=== PATIENT | male | born 1985 | race African-American/Black ===

== ENCOUNTER 2017-04-09 18:56 | Emergency (ER) | payer BC ==
--- NOTE | 2017-04-09 19:16 | EDM.PDOC ---
ED HPI GENERAL MEDICAL PROBLEM - General Chief Complaint: ENT Problem Stated Complaint: PT HAS SORE THROAT Time Seen by Provider: 04/09/17 19:06 - History of Present Illness INITIAL COMMENTS - FREE TEXT/NARRATIVE: HISTORY AND PHYSICAL: History of present illness: The patient is a 32-year-old male with no stated medical history who comes into the ER with a one-week history of intermittently feeling like when he eats food is getting stuck at the sternal notch in his throat. Patient states it is not consistent and he is able to eat or drink and it comes and goes but he is having no issues with increased burping nausea vomiting stomach pain chest pain shortness of breath trouble speaking. The patient says he feels the discomfort and then it seems to go away on its own. The patient has never had this before one week ago and he has no other systemic complaints. Currently he doesn't feel like anything is stuck. He says that he always feels a sensation in that same location at the base of his neck never lower and his chest or his abdomen. Review of systems: As per history of present illness and below otherwise all systems reviewed and negative. Past medical history: As per history of present illness and as reviewed below otherwise noncontributory. Surgical history: As per history of present illness and as reviewed below otherwise noncontributory. Social history: No reported history of drug or alcohol abuse. Family history: As per history of present illness and as reviewed below otherwise noncontributory. Physical exam: Gen.: Well-developed well-nourished male speaking clearly and easily in the ED without hoarse or muffled voice and vital signs been noted by me. HEENT: Atraumatic, normocephalic, pupils reactive, negative for conjunctival pallor or scleral icterus, mucous membranes moist, throat clear, neck supple, nontender, trachea midline. There is no evidence of any oropharyngeal swelling or abnormalities there is no tracheal deviation and no cervical adenopathy or nuchal rigidity and no soft tissue neck swelling. Lungs: Clear to auscultation, breath sounds equal bilaterally, chest nontender. Heart: S1S2, regular rate and rhythm no overt murmurs Abdomen: Soft, nondistended, nontender. NABS. Skin: No overt rashes or lesions normal turgor Genitourinary: Deferred. Rectal: Deferred. Extremities: Atraumatic, negative for cords or calf pain. Neurovascular unremarkable. Neuro: Awake, alert, oriented. Cranial nerves II through XII unremarkable. Cerebellum unremarkable. Motor and sensory unremarkable throughout. Exam nonfocal. Diagnostics: Soft tissue neck x-ray Therapeutics: I discussed with the patient that we will be very limited in evaluating an intermittent problem but is currently not occurring. I told him we could go ahead and do x-rays to evaluate the anatomy and I can refer him to ENT for further evaluation. The patient does not have a local provider which I will also give him referrals for. I discussed with him possible test that he may need going forward including a scope or a swallow study and have advised him on chewing his food thoroughly taking small bites and returning to ER if he has symptoms where he cannot eat and drink or swallow. Impression: Intermittent esophageal discomfort/spasm Definitive disposition and diagnosis as appropriate pending reevaluation and review of above. - Related Data Allergies Allergy/AdvReac Type Severity Reaction Status Date / Time No Known Allergies Allergy Verified 04/09/17 19:12 Home Meds: Home Meds . [No Known Home Meds] 04/09/17 [History] ED ROS GENERAL - Review of Systems Review Of Systems: ROS reveals no pertinent complaints other than HPI. ED EXAM, GENERAL - Physical Exam Exam: See Below (see dictation) Course - Vital Signs Last Recorded V/S: Last Vital Signs Temp 36.6 C 04/09/17 19:04 Pulse 87 04/09/17 19:04 Resp 18 04/09/17 19:04 BP 133/82 04/09/17 19:04 Pulse Ox 98 04/09/17 19:04 - Orders/Labs/Meds Orders: Active Orders 24 hr Category Date Time Status Neck Soft Tissue [CR] Stat Exams 04/09/17 19:12 Taken Departure - Departure Time of Disposition: 20:03 Disposition: Home, Self-Care 01 Condition: Good Clinical Impression: Esophageal pain - Discharge Information Forms: ED Department Discharge Additional Instructions: The following information is given to patients seen in the emergency department who are being discharged to home. This information is to outline your options for follow-up care. We provide all patients seen in our emergency department with a follow-up referral. The need for follow-up, as well as the timing and circumstances, are variable depending upon the specifics of your emergency department visit. If you don't have a primary care physician on staff, we will provide you with a referral. We always advise you to contact your personal physician following an emergency department visit to inform them of the circumstance of the visit and for follow-up with them and/or the need for any referrals to a consulting specialist. The emergency department will also refer you to a specialist when appropriate. This referral assures that you have the opportunity for followup care with a specialist. All of these measure are taken in an effort to provide you with optimal care, which includes your followup. Under all circumstances we always encourage you to contact your private physician who remains a resource for coordinating your care. When calling for followup care, please make the office aware that this follow-up is from your recent emergency room visit. If for any reason you are refused follow-up, please contact the [facility] emergency department at and ask to speak to the emergency department charge nurse. [facility] [address] [place] [id number] [facility] [address] [place] [id number] Please call and connect with our clinic physicians as we discussed and return to ER as needed as discussed. Please chew food thoroughly and take small bites. - My Orders Last 24 Hours: My Active Orders 04/09/17 19:12 Neck Soft Tissue [CR] Stat - Assessment/Plan Last 24 Hours: My Active Orders 04/09/17 19:12 Neck Soft Tissue [CR] Stat
[2017-04-09 20:11] VITALS: BP 125/86
--- NOTE | 2017-04-10 12:44 | CR ---
EXAM DATE: 04/09/17 PATIENT'S AGE: 32 Patient: ROSE HERNANDEZ Facility: [place], [place] Site . Site : 1985 Study: XRay ST Neck [id number] 7:32:14 PM Ordering Physician: Doctor Miles Final Report: Indication: Globus sensation. Technique: Two views. Impression: Airways are patent. Normal epiglottis and supraglottic soft tissues. Anatomic alignment. Prevertebral soft tissues are normal. Dictated by Marvin Alexander MD @ Apr 09 2017 7:40PM (Electronic Signature) Report Signed by Proxy. JOSE ANTONIO
== END 2017-04-09 20:13 | disposition home or self-care (01) ==
LOC: MW.ED 18:56
DX: K22.8 Other specified diseases of esophagus (principal)
CPT/HCPCS: 70360; 70360-26; 99282; 99283

== ENCOUNTER 2017-05-26 22:14 | Emergency (ER) | payer BC ==
[2017-05-26] MEDS ORDERED: Proparacaine 0.5% Ophth Soln 15 ML Bottle EYELF STA (22:15)
--- NOTE | 2017-05-26 22:29 | EDM.PDOC ---
ED HPI GENERAL MEDICAL PROBLEM - General Chief Complaint: Eye Problems Stated Complaint: OIL FEEL IN LF EYE Time Seen by Provider: 05/26/17 22:25 - History of Present Illness INITIAL COMMENTS - FREE TEXT/NARRATIVE: HISTORY AND PHYSICAL: History of present illness: Patient 32-year-old male who presents with a concern of unknown exposure to his left eye he irrigated this with copious amounts of water initially and presents now with some mild irritation is no visual acuity change no pain no other complaints Review of systems: As per history of present illness and below otherwise all systems reviewed and negative. Past medical history: As per history of present illness and as reviewed below otherwise noncontributory. Surgical history: As per history of present illness and as reviewed below otherwise noncontributory. Social history: No reported history of drug or alcohol abuse. Family history: As per history of present illness and as reviewed below otherwise noncontributory. Physical exam: HEENT: Atraumatic, normocephalic, pupils reactive, negative for conjunctival pallor or scleral icterus, mucous membranes moist, throat clear, neck supple, nontender, trachea midline. Left conjunctival injection noted anterior chamber clear visual acuity 20/40 20/40 20/40 is no corneal abrasion no foreign body Lungs: Clear to auscultation, breath sounds equal bilaterally, chest nontender. Heart: S1S2, regular, negative for clicks, rubs, or JVD. Abdomen: Soft, nondistended, nontender. Negative for masses or hepatosplenomegaly. Negative for costovertebral tenderness. Pelvis: Stable nontender. Genitourinary: Deferred. Rectal: Deferred. Extremities: Atraumatic, negative for cords or calf pain. Neurovascular unremarkable. Neuro: Awake, alert, oriented. Cranial nerves II through XII unremarkable. Cerebellum unremarkable. Motor and sensory unremarkable throughout. Exam nonfocal. Diagnostics: None Therapeutics: Irrigation Impression: #1 chemical conjunctivitis Definitive disposition and diagnosis as appropriate pending reevaluation and review of above. - Related Data Allergies Allergy/AdvReac Type Severity Reaction Status Date / Time No Known Allergies Allergy Verified 04/09/17 19:12 Home Meds: Home Meds . [No Known Home Meds] 04/09/17 [History] Past Medical History - Past Health History Medical/Surgical History: Denies Medical/Surgical History - Infectious Disease History Infectious Disease History: Reports: Chicken Pox Social & Family History - Family History Family Medical History: Noncontributory - Tobacco Use Smoking Status *Q: Current Every Day Smoker Years of Tobacco use: 15 Packs/Tins Daily: 0.5 - Caffeine Use Caffeine Use: Reports: Coffee, Energy Drinks Caffeine Use Comment: 1-2 drinks each /day - Recreational Drug Use Recreational Drug Use: No ED ROS GENERAL - Review of Systems Review Of Systems: ROS reveals no pertinent complaints other than HPI. ED EXAM GENERAL W FULL EYE - Physical Exam Exam: See Below (see dictation) Course - Orders/Labs/Meds Meds: Medications Discontinued Medications Generic Name Dose Route Start Last Admin Trade Name Freq PRN Reason Stop Dose Admin Proparacaine HCl 1 ml 05/26/17 22:15 Proparacaine 0.5% Ophth Soln EYELF 05/26/17 22:16 NOW STA Departure - Departure Time of Disposition: 22:28 Disposition: Home, Self-Care 01 Condition: Good Clinical Impression: Conjunctivitis - Discharge Information Referrals: PCP,None [Primary Care Provider] - Additional Instructions: The following information is given to patients seen in the emergency department who are being discharged to home. This information is to outline your options for follow-up care. We provide all patients seen in our emergency department with a follow-up referral. The need for follow-up, as well as the timing and circumstances, are variable depending upon the specifics of your emergency department visit. If you don't have a primary care physician on staff, we will provide you with a referral. We always advise you to contact your personal physician following an emergency department visit to inform them of the circumstance of the visit and for follow-up with them and/or the need for any referrals to a consulting specialist. The emergency department will also refer you to a specialist when appropriate. This referral assures that you have the opportunity for followup care with a specialist. All of these measure are taken in an effort to provide you with optimal care, which includes your followup. Under all circumstances we always encourage you to contact your private physician who remains a resource for coordinating your care. When calling for followup care, please make the office aware that this follow-up is from your recent emergency room visit. If for any reason you are refused follow-up, please contact the [facility] emergency department at and asked to speak to the emergency department charge nurse. Erythromycin ophthalmic ointment as prescribed follow-up primary medical doctor 1-2 days return as needed as discussed
[2017-05-26 22:53] VITALS: BP 119/73
== END 2017-05-26 22:53 | disposition home or self-care (01) ==
LOC: MW.ED 22:14
DX: H10.212 Acute toxic conjunctivitis, left eye (principal); F17.210 Nicotine dependence, cigarettes, uncomplicated
CPT/HCPCS: 99282; 99283